=== PATIENT | male | born 1970 | race African-American/Black ===

== ENCOUNTER 2017-01-15 14:16 | Emergency (ER) | payer OTHER ==
[~2017-01-15] VITALS: Ht 180.3 cm; Wt 90.4 kg
[~2017-01-15 14:16] MED LIST: ALBUTEROL2.5 MG/3 M IH; BENZTROPINE MESY2 MG PO; FLUOXETINE HCL20 MG PO; GABAPENTIN300 MG PO; GENERLAC10 GM/15 M PO; IBUPROFEN600 MG PO; NORVIR100 MG PO; PREZISTA600 MG PO; RISPERDAL3 MG PO; TRUVADA1 TABLET PO
[2017-01-15 15:14] LABS: EOSINOPHIL (%) 1.4 % (0-5); EOSINOPHIL COUNT 0.1 K/uL (0-0.3); HEMATOCRIT 36.4 % (38.0-50.0); IMMATURE GRANULOCYTE (%) 0.4 % (0.0-0.7); INSTRUMENT ABS NEUTROPHIL CT 6.7 K/uL; LYMPHOCYTE COUNT 1.7 K/uL (1.0-2.8); MCH 31.5 PG (29.0-34.0); MCHC 32.4 G/DL (30.0-36.0); MCV 97.1 FL (86-99); MEAN PLAT.VOLUME 9.2 uM^3 (9.0-12.4); MONOCYTE (%) 9.5 % (3-12); MONOCYTE COUNT 0.9 K/uL (0-0.8); NEUTROPHIL (%) 70.2 % (45-76); NEUTROPHIL COUNT 6.7 K/uL (1.8-6.4); PLATELET COUNT 186 K/uL (156-360); RBC DIS.WIDTH-CV 12.7 % (11.8-14.6); RBC DIS.WIDTH-SD 45.4 % (39-53); RED BLOOD COUNT 3.75 M/uL (4.00-5.50); WHITE BLOOD COUNT 9.6 K/uL (4.1-10.2)
[2017-01-15 15:23] LABS: CHLORIDE 111 mEq/L (99-109); INTER. NORMALIZED RATIO 1.1; PROTHROMBIN TIME 10.7 (9.2-11.2); PTT 22.1 (25-32); SODIUM 140 mEq/L (136-147)
[2017-01-15 15:25] LABS: GLUCOSE 92 mg/dL (70-99)
[2017-01-15 15:27] LABS: ANION GAP 5 MEQ/L (2-14); TOTAL BILIRUBIN 0.8 mg/dL (0.0-1.0)
[2017-01-15 15:29] LABS: ALKALINE PHOSPHATASE 191 IU/L (3-129); GFR ESTIMATE (CALCULATED) > 59 mL/min/
[2017-01-15 15:30] LABS: UREA NITROGEN (BUN) 24 mg/dL (9-23)
[2017-01-15 15:35] LABS: TROP-I INTERPRETATION NEGATIVE; TROPONIN-I < 0.01 ng/mL (0.0-0.30)
[2017-01-15 17:49] VITALS: BP 107/84
== END 2017-01-15 17:49 ==
LOC: EME 14:16
PROVIDERS: Emergency Medicine
DX: N17.9 Acute kidney failure, unspecified (principal); E86.0 Dehydration; R53.1 Weakness; B19.20 Unspecified viral hepatitis C without hepatic coma; Z21 Asymptomatic human immunodeficiency virus [HIV] infection status; F09 Unspecified mental disorder due to known physiological condition; F32.9 Major depressive disorder, single episode, unspecified; Z87.891 Personal history of nicotine dependence
CPT/HCPCS: 70450; 80053; 84484; 85025; 85610; 85730; 93005; 99281; 99285